=== PATIENT | male | born 1980 | race Two or more races ===

== ENCOUNTER 2023-06-10 13:46 | Emergency (ER) | payer MEDICAID, OTHER ==
[~2023-06-10] VITALS: Ht 165.1 cm; Wt 75.9 kg
[2023-06-10] MEDS ORDERED: SODIUM CHLORIDE 0.9% 1,000 ML IV ONE ×2 (15:15→17:30)
[2023-06-10] MEDS ORDERED: SODIUM CHLORIDE 0.9% 1,000 ML IVB ONE (15:15)
[2023-06-10 15:49] VITALS: BP 139/88; PULSE 104; RESP 18; TEMP 99.1; O2SAT 99
[2023-06-10] MEDS ORDERED: THIAMINE 100mg/ml INJ (200mg/2ml VIAL) IV ONE (16:30)
[2023-06-10] MEDS ORDERED: chlordiazePOXIDE HCL 25 MG CAP PO ONE (17:30)
== END 2023-06-10 18:35 | disposition home or self-care (01) ==
LOC: ER 13:46
DX: F10.10 Alcohol abuse, uncomplicated (principal); F41.9 Anxiety disorder, unspecified
CPT/HCPCS: 36415; 80320; 96361; 96374; 99283; J3411; J7030